=== PATIENT | male | born 1960 | race Caucasian/White ===

== ENCOUNTER 2016-04-19 15:30 | Emergency (ER) | payer SELFPAY ==
[~2016-04-19] VITALS: Ht 187.9 cm; Wt 113.4 kg
[~2016-04-19 15:30] MED LIST: AUGMENTIN 875 M1 TAB PO; CLARITIN10 MG PO; DARVOCET N 1001 TAB PO; FLAGYL500 MG PO; HYDROCODONE BIT1 T11 PO; KEFLEX500 MG PO; LISINOPRIL20 MG PO; MEDROL DOSEPAK4 MG PO; METOPROLOL SR25 MG PO; MOTRIN800 MG PO; Metformin Hydr500 MG PO; PROVENTIL0.09 MG/AC IH; PROZAC10 M1 PO; TRAMADOL HCL50 MG PO; ZITHROMAX TRI-500 MG PO
[2016-04-19 15:35] VITALS: BP 136/80
[2016-04-19] MEDS ORDERED: FLONASE ALLERG9.9 ML NAS (16:22)
[2016-04-19] MEDS ORDERED: ROBITUSSIN AC 110 ML PO (16:22)
[2016-04-19] MEDS ORDERED: CLARITIN10 MG PO (16:22)
[2016-04-19] MEDS ORDERED: PREDNISONE10 MG PO (16:22)
== END 2016-04-19 16:44 | disposition home or self-care (01) ==
LOC: ED 15:30
DX: B34.9 Viral infection, unspecified (principal); R03.0 Elevated blood-pressure reading, without diagnosis of hypertension; F17.200 Nicotine dependence, unspecified, uncomplicated

== ENCOUNTER → 2017-02-04 | Outpatient (CLI) | payer MEDICAID ==
[~2017-02-04] MED LIST changes: +FLONASE ALLERG9.9 ML NAS; +PREDNISONE10 MG PO; +ROBITUSSIN AC 110 ML PO
== END | disposition home or self-care (01) ==
LOC: RAD 13:43
DX: M51.35 Other intervertebral disc degeneration, thoracolumbar region (principal); M51.37 Other intervertebral disc degeneration, lumbosacral region; M54.41 Lumbago with sciatica, right side; Z87.81 Personal history of (healed) traumatic fracture

== ENCOUNTER → 2021-03-23 | Outpatient (CLI) | payer OTHER | END | disposition home or self-care (01) | LOC: COVID19 15:00 | PROVIDERS: ATTEND Podiatrist Foot & Ankle Surgery | DX: Z11.52 Encounter for screening for COVID-19 (principal) ==

== ENCOUNTER 2022-01-05 16:29 | Emergency (ER) | payer OTHER ==
[~2022-01-05] VITALS: Ht 175.2 cm; Wt 95.3 kg
[2022-01-05 17:08] LABS: BASO # 0.1 10*3/uL (0.0-0.1); BASO % 0.5 % (0.0-1.0); EOS # 0.2 10*3/uL (0.0-0.4); EOS % 1.4 % (1.0-4.0); LYMPH # 3.4 10*3/uL (1.3-4.4); LYMPH % 28.7 % (27.0-41.0); MEAN CELL VOLUME 83.2 fl (80.0-94.0); MEAN CORPUSCULAR HGB 28.4 pg (27.0-31.0); MEAN CORPUSCULAR HGB CONC 34.1 g/dl (33.0-37.0); MEAN PLATELET VOLUME 11.1 fl (9.6-12.3); MONO # 0.6 10*3/uL (0.1-1.0); MONO % 5.1 % (3.0-9.0); NEUT # 7.5 10*3/uL (2.3-7.9); PLATELET COUNT AUTOMATED 207 10*3/uL (130-400); RED BLOOD COUNT 5.53 10*6/uL (4.50-5.90); RED CELL DISTRI WIDTH 13.2 % (0-14.5); WHITE BLOOD COUNT 11.7 10*3/uL (4.8-10.8)
[2022-01-05 17:36] LABS: ACT PARTIAL THROMBO TIME 31.5 SECONDS (20.0-32.1)
[2022-01-05 17:55] LABS: ALKALINE PHOSPHATASE 120 U/L (45-117); BUN 18 mg/dl (7-24); CHLORIDE 98 mmol/L (98-107); CREATININE 1.33 mg/dL (0.70-1.30); POTASSIUM 3.9 mmol/L (3.5-5.1); SGOT/AST 25 IU/L (3-35); SGPT/ALT 36 U/L (12-78); SODIUM 131 mmol/L (136-145); TOTAL PROTEIN 7.1 gm/dL (6.4-8.2)
[2022-01-05 18:09] VITALS: BP 132/69
== END 2022-01-05 19:30 | disposition left against medical advice (07) ==
LOC: ED 16:29
PROVIDERS: Student in an Organized Health Care Education/Training Program
DX: R07.9 Chest pain, unspecified (principal); R42 Dizziness and giddiness